=== PATIENT | female | born 1990 | race Caucasian/White ===

== ENCOUNTER 2017-02-13 12:15 | Emergency (ER) | payer MEDICAID, OTHER ==
[~2017-02-13] VITALS: Ht 154.9 cm; Wt 44.8 kg
[~2017-02-13 12:15] MED LIST: ACET50TA PO; COLA100C PO
[2017-02-13 12:16] VITALS: BP 131/72
[2017-02-13] MEDS ORDERED: ALBU17IN (12:26)
[2017-02-13] MEDS ORDERED: ABIL5TAB5 PO (12:26)
[2017-02-13] MEDS ORDERED: SERTRALINE (12:26)
[2017-02-13] MEDS ORDERED: VITA50003 (12:26)
[2017-02-13] MEDS ORDERED: RANI150T (12:26)
[2017-02-13] MEDS ORDERED: TYLE325T5 PO (13:04)
[2017-02-13] MEDS ORDERED: CYCL10TA PO (13:04)
== END 2017-02-13 13:22 | disposition home or self-care (01) ==
LOC: M ED 13:03
DX: M54.5 Low back pain (principal); M41.9 Scoliosis, unspecified; Z79.899 Other long term (current) drug therapy; Z88.5 Allergy status to narcotic agent; Z88.8 Allergy status to other drugs, medicaments and biological substances

== ENCOUNTER 2017-05-28 00:29 | Emergency (ER) | payer OTHER ==
[~2017-05-28 00:29] MED LIST changes: +ABIL1TAB11 PO; +ALBU17IN; -COLA100C PO; +COLA100C5 PO; +CYCL10TA PO; +RANI150T; +SERTRALINE; +TYLE325T5 PO; +VITA1CAP40
[2017-05-28] MEDS ORDERED: CLIN150C14 PO (01:41)
[2017-05-28] MEDS ORDERED: CLINDAMYCIN 150 MG CAP PO ONE (01:45)
[2017-05-28] MEDS ORDERED: KETOROLAC 60 MG/2 ML VIAL (J1885) IM ONE (02:00)
[2017-05-28] MEDS ORDERED: ACETAMINOPHEN TAB 650MG DOSE (2X325MG) PO ONE (02:00)
[2017-05-28 02:12] VITALS: BP 110/65
== END 2017-05-28 02:13 | disposition home or self-care (01) ==
LOC: M ED 00:29
DX: L03.119 Cellulitis of unspecified part of limb (principal); J45.909 Unspecified asthma, uncomplicated; E61.1 Iron deficiency; F17.200 Nicotine dependence, unspecified, uncomplicated; Z79.899 Other long term (current) drug therapy; Z88.5 Allergy status to narcotic agent; Z88.6 Allergy status to analgesic agent; Z88.8 Allergy status to other drugs, medicaments and biological substances

== ENCOUNTER 2017-08-13 14:56 | Emergency (ER) | payer OTHER ==
[~2017-08-13] VITALS: Ht 154.9 cm; Wt 45.9 kg
[~2017-08-13 14:56] MED LIST changes: +CLIN150C14 PO
[2017-08-13 14:57] VITALS: BP 134/72
[2017-08-13] MEDS ORDERED: ARNU1INH3 (15:07)
[2017-08-13] MEDS ORDERED: SERT-155 (15:07)
[2017-08-13] MEDS ORDERED: VENL37.598 (15:07)
[2017-08-13] MEDS ORDERED: BLIS1TAB2 (15:07)
[2017-08-13] MEDS ORDERED: traMADol 50 MG TAB PO ONE (17:30)
[2017-08-13] MEDS ORDERED: TRAM50TA2 PO (18:41)
--- NOTE | 2017-08-13 19:56 | REP ---
Left wrist series: Four views. History: Injury. Findings: Four views of the left wrist demonstrate overall normal mineralization. No fracture or subluxation is seen. No change from comparison study December 10, 2015. Impression: Negative left wrist series. Signed by Moses Rivera MD 08/14/2017 08:10 A
== END 2017-08-13 19:06 | disposition home or self-care (01) ==
LOC: M ED 14:56
DX: S63.502A Unspecified sprain of left wrist, initial encounter (principal); X50.9XXA Other and unspecified overexertion or strenuous movements or postures, initial encounter; Y92.099 Unspecified place in other non-institutional residence as the place of occurrence of the external cause; Y93.89 Activity, other specified; Y99.9 Unspecified external cause status; F41.9 Anxiety disorder, unspecified; J45.909 Unspecified asthma, uncomplicated; F17.200 Nicotine dependence, unspecified, uncomplicated; Z79.899 Other long term (current) drug therapy; Z88.8 Allergy status to other drugs, medicaments and biological substances; Z88.6 Allergy status to analgesic agent; Z88.5 Allergy status to narcotic agent

== ENCOUNTER 2017-12-08 14:06 | Emergency (ER) | payer OTHER | END 2017-12-08 16:15 | disposition home or self-care (01) | LOC: M ED 14:06 | DX: S93.491A Sprain of other ligament of right ankle, initial encounter (principal); X50.0XXA Overexertion from strenuous movement or load, initial encounter; Y92.098 Other place in other non-institutional residence as the place of occurrence of the external cause; Y93.39 Activity, other involving climbing, rappelling and jumping off; J45.909 Unspecified asthma, uncomplicated; F41.9 Anxiety disorder, unspecified; F32.9 Major depressive disorder, single episode, unspecified; Z79.899 Other long term (current) drug therapy; Z79.51 Long term (current) use of inhaled steroids; Z88.5 Allergy status to narcotic agent; Z88.8 Allergy status to other drugs, medicaments and biological substances | CPT/HCPCS: 73610 ==

== ENCOUNTER 2018-03-24 23:23 | Emergency (ER) | payer OTHER ==
[2018-03-25] MEDS ORDERED: LIDOCAINE W/EPINEPHRINE 1% 20ML VIAL As Ordered (01:23)
[2018-03-25] MEDS: LIDOCAINE W/EPINEPHRINE 1% 20ML VIAL SC (01:30)
== END 2018-03-25 02:06 | disposition home or self-care (01) ==
LOC: M ED 23:23
DX: K02.9 Dental caries, unspecified (principal); J45.909 Unspecified asthma, uncomplicated; Z88.5 Allergy status to narcotic agent; Z88.8 Allergy status to other drugs, medicaments and biological substances; F17.210 Nicotine dependence, cigarettes, uncomplicated
CPT/HCPCS: 99283

== ENCOUNTER 2018-05-12 10:56 | Emergency (ER) | payer OTHER ==
[2018-05-12 12:47] LABS: BASO # 0.1 10^3/uL (0.0-0.2); BASO % 0.6 % (0.0-1.0); EOS # 0.2 10^3/uL (0.0-0.50); EOS % 2.5 % (0.0-3.0); HEMATOCRIT 45.1 % (36.0-47.0); HEMOGLOBIN 15.4 g/dl (12.0-15.5); IMMATURE GRANULOCYTE % 0.1 % (0-3.0); LYMPH # 2.7 10^3/uL (1.5-6.5); LYMPH % 31.5 % (24.0-44.0); MEAN CORPUSCULAR HEMOGLOBIN 29.3 pg (27.0-33.0); MEAN CORPUSCULAR HGB CONC 34.1 g/dl (32.0-36.5); MEAN CORPUSCULAR VOLUME 85.9 fl (80.0-96.0); MONO # 0.4 10^3/uL (0.0-0.8); MONO % 5.2 % (0.0-5.0); NEUTROPHILS % 60.1 % (36.0-66.0); PLATELET COUNT, AUTOMATED 262 10^3/uL (150-450); RED BLOOD COUNT 5.25 10^6/uL (4.00-5.40); RED CELL DISTRIBUTION WIDTH 13.5 % (11.5-14.5); WHITE BLOOD COUNT 8.4 10^3/uL (4.0-10.0)
[2018-05-12 12:51] LABS: KETONE, URINE AUTO RFX NEGATIVE (NEGATIVE); LEUKOCYTE ESTERASE UR AUTO RFX NEGATIVE (NEGATIVE); MUCUS, URINE RFX SMALL (NEGATIVE); NITRITE, URINE AUTO RFX NEGATIVE (NEGATIVE); RBC, URINE AUTO RFX 2 /HPF (0-3); SPECIFIC GRAVITY UR AUTO RFX 1.005 (1.002-1.035); SQUAM EPITHELIAL CELL UR AURFX 2 /HPF (0-6); WBC, URINE AUTO RFX 2 /HPF (0-3)
[2018-05-12 13:22] LABS: ANION GAP 9 MEQ/L (8-16); BLOOD UREA NITROGEN 6 MG/DL (7-18); CALCIUM LEVEL 9.1 MG/DL (8.5-10.1); CARBON DIOXIDE LEVEL 26 MEQ/L (21-32); CHLORIDE LEVEL 108 MEQ/L (98-107); GLOMERULAR FILTRATION RATE > 60.0 (>60); GLUCOSE, FASTING 89 MG/DL (70-100); POTASSIUM SERUM 4.3 MEQ/L (3.5-5.1); SODIUM LEVEL 143 MEQ/L (136-145); THYROID STIMULATING HORMONE 0.749 uIU/ML (0.358-3.740)
[2018-05-12 13:57] LABS: CONTROL LINE HCG INT CTR LINE PRESENT; HCG, SERUM QUALITATIVE NEGATIVE (NEGATIVE)
== END 2018-05-12 14:25 | disposition home or self-care (01) ==
LOC: M ED 10:56
DX: N92.6 Irregular menstruation, unspecified (principal); M54.5 Low back pain; F41.9 Anxiety disorder, unspecified; F32.9 Major depressive disorder, single episode, unspecified; F17.200 Nicotine dependence, unspecified, uncomplicated; Z88.5 Allergy status to narcotic agent; Z88.8 Allergy status to other drugs, medicaments and biological substances; Z79.899 Other long term (current) drug therapy
CPT/HCPCS: 84443

== ENCOUNTER → 2018-09-18 | Outpatient (CLI) | payer OTHER ==
[2018-09-18 14:38] LABS: BASO % 0.3 % (0.0-1.0); EOS # 0.3 10^3/uL (0.0-0.50); EOS % 2.9 % (0.0-3.0); HEMATOCRIT 45.5 % (36.0-47.0); HEMOGLOBIN 15.7 g/dl (12.0-15.5); IMMATURE GRANULOCYTE % 0.2 % (0-3.0); LYMPH # 3.8 10^3/uL (1.5-6.5); LYMPH % 41.9 % (24.0-44.0); MEAN CORPUSCULAR HEMOGLOBIN 29.7 pg (27.0-33.0); MEAN CORPUSCULAR HGB CONC 34.5 g/dl (32.0-36.5); MEAN CORPUSCULAR VOLUME 86.2 fl (80.0-96.0); MONO # 0.4 10^3/uL (0.0-0.8); MONO % 4.8 % (0.0-5.0); NEUTROPHILS # 4.5 10^3/uL (1.8-7.7); NEUTROPHILS % 49.9 % (36.0-66.0); PLATELET COUNT, AUTOMATED 258 10^3/uL (150-450); RED BLOOD COUNT 5.28 10^6/uL (4.00-5.40); RED CELL DISTRIBUTION WIDTH 12.9 % (11.5-14.5)
[2018-09-18 14:52] LABS: HCG, SERUM QUALITATIVE NEGATIVE (NEGATIVE)
[2018-09-18 14:53] LABS: CONTROL LINE HCG INT CTR LINE PRESENT
[2018-09-18 15:08] LABS: ALKALINE PHOSPHATASE 88 U/L (45-117); ALT/SGPT 17 U/L (12-78); ANION GAP 8 MEQ/L (8-16); AST/SGOT 12 U/L (7-37); BILIRUBIN,TOTAL 0.6 MG/DL (0.2-1.0); BLOOD UREA NITROGEN 12 MG/DL (7-18); CALCIUM LEVEL 8.7 MG/DL (8.5-10.1); CARBON DIOXIDE LEVEL 25 MEQ/L (21-32); CHLORIDE LEVEL 108 MEQ/L (98-107); CREATININE FOR GFR 0.78 MG/DL (0.55-1.30); GLOMERULAR FILTRATION RATE > 60.0 (>60); GLUCOSE, FASTING 77 MG/DL (70-100); SODIUM LEVEL 141 MEQ/L (136-145)
[2018-09-18 15:09] LABS: ALBUMIN 4.1 GM/DL (3.2-5.2); ALBUMIN/GLOBULIN RATIO 1.37 (1.00-1.93); THYROID STIMULATING HORMONE 0.921 uIU/ML (0.358-3.740); TOTAL PROTEIN 7.1 GM/DL (6.4-8.2)
== END ==
LOC: M LAB 14:14
DX: N91.1 Secondary amenorrhea (principal); Z86.2 Personal history of diseases of the blood and blood-forming organs and certain disorders involving the immune mechanism
CPT/HCPCS: 84443

== ENCOUNTER → 2019-02-05 | Outpatient (REF) | payer OTHER ==
[~2019-02-05] MED LIST changes: -ACET50TA PO; +ARNU1INH3; +BLIS1TAB2; +CLEO300C2 PO; +MAPA500T2 PO; +MULTLIQ7 PO; +SERT-155; +TRAM50TA2 PO; +VENL37.598; -VITA1CAP40; +VITA50005
--- NOTE | 2019-02-05 20:25 | REP ---
Lumbar spine five views History: None provided There is no acute fracture or subluxation. Intervertebral discs are normal in height. The facet joints are normal in appearance. Impression: There is no acute fracture or subluxation. Electronically Signed by Ken Song MD 02/05/2019 08:17 P
== END ==
LOC: M RAD 17:40
PROVIDERS: ATTEND Family Medicine Addiction Medicine
DX: M54.16 Radiculopathy, lumbar region (principal)

== ENCOUNTER 2019-06-04 18:13 | Emergency (ER) | payer OTHER ==
[~2019-06-04] VITALS: Ht 160 cm; Wt 44.4 kg
[2019-06-04 18:13] VITALS: BP 113/80
[2019-06-04] MEDS ORDERED: VOLT1GEL15 TOP (19:13)
[2019-06-04] MEDS ORDERED: ACETAMINOPHEN 325 MG TAB PO ONE (19:15)
== END 2019-06-04 19:22 | disposition home or self-care (01) ==
LOC: M ED 18:13
DX: S63.502A Unspecified sprain of left wrist, initial encounter (principal); X58.XXXA Exposure to other specified factors, initial encounter; Y92.099 Unspecified place in other non-institutional residence as the place of occurrence of the external cause; Y93.89 Activity, other specified; Y99.9 Unspecified external cause status; Z72.0 Tobacco use; J45.909 Unspecified asthma, uncomplicated; F41.9 Anxiety disorder, unspecified; F32.9 Major depressive disorder, single episode, unspecified; Z79.899 Other long term (current) drug therapy; Z88.5 Allergy status to narcotic agent; Z88.6 Allergy status to analgesic agent; Z88.8 Allergy status to other drugs, medicaments and biological substances

== ENCOUNTER → 2019-07-08 | Outpatient (REF) | payer OTHER, MEDICAID ==
[~2019-07-08] MED LIST changes: +VOLT1GEL15 TOP
[2019-07-08 13:25] LABS: BASO % 0.4 % (0.0-1.0); EOS # 0.3 10^3/uL (0.0-0.50); EOS % 3.1 % (0.0-3.0); HEMATOCRIT 43.2 % (36.0-47.0); HEMOGLOBIN 14.8 g/dl (12.0-15.5); LYMPH # 3.3 10^3/uL (1.5-6.5); LYMPH % 32.2 % (24.0-44.0); MEAN CORPUSCULAR HEMOGLOBIN 30.6 pg (27.0-33.0); MEAN CORPUSCULAR HGB CONC 34.3 g/dl (32.0-36.5); MEAN CORPUSCULAR VOLUME 89.3 fl (80.0-96.0); MONO # 0.5 10^3/uL (0.0-0.8); MONO % 5.4 % (0.0-5.0); NEUTROPHILS # 5.9 10^3/uL (1.8-7.7); NEUTROPHILS % 58.6 % (36.0-66.0); PLATELET COUNT, AUTOMATED 295 10^3/uL (150-450); RED BLOOD COUNT 4.84 10^6/uL (4.00-5.40); WHITE BLOOD COUNT 10.1 10^3/uL (4.0-10.0)
[2019-07-08 13:44] LABS: ALBUMIN 3.6 GM/DL (3.2-5.2); ALT/SGPT 16 U/L (12-78); BILIRUBIN,TOTAL 0.3 MG/DL (0.2-1.0); BLOOD UREA NITROGEN 12 MG/DL (7-18); CARBON DIOXIDE LEVEL 24 MEQ/L (21-32); CHLORIDE LEVEL 109 MEQ/L (98-107); CHOLESTEROL LEVEL 158 MG/DL (<200); CHOLESTEROL RISK RATIO 2.507 (<5); CREATININE FOR GFR 0.72 MG/DL (0.55-1.30); FERRITIN 22 NG/ML (8-252); FREE T4 0.95 NG/DL (0.76-1.46); GLOMERULAR FILTRATION RATE > 60.0 (>60); GLUCOSE, FASTING 76 MG/DL (70-100); HDL CHOLESTEROL 63 MG/DL (>40); IRON (FE) 58 UG/DL (50-170); LDL CHOLESTEROL 77 MG/DL (<100); NON-HDL-C 95 MG/DL; POTASSIUM SERUM 4.4 MEQ/L (3.5-5.1); SODIUM LEVEL 141 MEQ/L (136-145); TOTAL 25(OH) VITAMIN D 26.8 NG/ML (30.0-100.0); TOTAL PROTEIN 6.8 GM/DL (6.4-8.2); TRIGLYCERIDES LEVEL 89 MG/DL (<150); VITAMIN B12 LEVEL 649 PG/ML (247-911)
[2019-07-08 13:57] LABS: HEMOGLOBIN A1c 5.1 %
== END ==
LOC: M LAB REF 12:34
PROVIDERS: ATTEND Nurse Practitioner Family
DX: Z00.01 Encounter for general adult medical examination with abnormal findings (principal); R53.83 Other fatigue

== ENCOUNTER → 2019-08-22 | Outpatient (CLI) | payer OTHER, MEDICAID ==
[~2019-08-22] MED LIST changes: +ACET-897 PO; +ALBU8.5H PO; +AMOX875T; +ARNU1INH3 PO; +ICY1PAD EX; +IRON27TA2 PO; +OXYC-517; +PARO5TAB; -SERT-155; +SERT50TA29; +VITA-145 PO
--- NOTE | 2019-09-12 11:42 | ECWPNPC ---
PATIENT NAME: RISHI LAWSON : 1990 GENDER: FEMALE VISIT DATE: 08/22/2019 DISCHARGE DATE: 08/22/19 1300 VISIT LOCKED DATE TIME: PHYSICIAN: TOM PETERSON MD RESOURCE: TOM PETERSON MD DISCLAIMER : THIS IS A VISIT SUMMARY EXTRACTED FROM THE [facility] CHART. IT IS NOT A COPY OF THE [facility] [facility] PROGRESS NOTE. MTDD
== END ==
LOC: M PAIN 11:00
PROVIDERS: ATTEND Anesthesiology
DX: M79.18 Myalgia, other site (principal); M54.5 Low back pain; G89.29 Other chronic pain; J45.909 Unspecified asthma, uncomplicated; Z86.59 Personal history of other mental and behavioral disorders; F17.210 Nicotine dependence, cigarettes, uncomplicated; M41.9 Scoliosis, unspecified; Z88.5 Allergy status to narcotic agent; Z88.6 Allergy status to analgesic agent; Z88.8 Allergy status to other drugs, medicaments and biological substances; Z91.018 Allergy to other foods; Z79.51 Long term (current) use of inhaled steroids; Z79.899 Other long term (current) drug therapy

== ENCOUNTER 2019-10-17 14:03 | Emergency (ER) | payer MEDICAID, OTHER ==
[~2019-10-17] VITALS: Ht 157.5 cm; Wt 43.2 kg
[2019-10-17 14:03] VITALS: BP 121/80
[~2019-10-17 14:03] MED LIST changes: -ACET-897 PO; -ALBU8.5H PO; -AMOX875T; -ARNU1INH3 PO; -ICY1PAD EX; -IRON27TA2 PO; -OXYC-517; -PARO5TAB; -VITA-145 PO
[2019-10-17] MEDS ORDERED: OXYC-517 (14:12)
[2019-10-17] MEDS ORDERED: PARO5TAB (14:12)
[2019-10-17] MEDS ORDERED: AMOX875T (14:12)
[2019-10-17] MEDS ORDERED: CLEO300C2 PO (15:20)
== END 2019-10-17 15:47 | disposition home or self-care (01) ==
LOC: M ED 14:03
DX: K04.7 Periapical abscess without sinus (principal); Z88.5 Allergy status to narcotic agent; Z88.8 Allergy status to other drugs, medicaments and biological substances; F17.210 Nicotine dependence, cigarettes, uncomplicated

== ENCOUNTER 2019-12-01 12:37 | Emergency (ER) | payer OTHER ==
[~2019-12-01] VITALS: Ht 157.5 cm; Wt 47.6 kg
[~2019-12-01 12:37] MED LIST changes: +AMOX875T; +OXYC-517; +PARO5TAB
[2019-12-01] MEDS ORDERED: VITA-145 PO (12:49)
[2019-12-01] MEDS ORDERED: IRON27TA2 PO (12:49)
[2019-12-01] MEDS ORDERED: ARNU1INH3 PO (12:49)
[2019-12-01] MEDS ORDERED: ALBU8.5H PO (12:49)
[2019-12-01] MEDS ORDERED: ICY1PAD EX (12:49)
[2019-12-01] MEDS ORDERED: ACETAMINOPHEN TAB 650MG DOSE (2X325MG) PO ONE (13:45)
[2019-12-01 14:16] LABS: BASO % 0.4 % (0.0-1.0); EOS # 0.2 10^3/uL (0.0-0.5); EOS % 2.6 % (0.0-3.0); HEMATOCRIT 49.2 % (36.0-47.0); HEMOGLOBIN 15.9 g/dl (12.0-15.5); LYMPH # 2.7 10^3/uL (1.5-5.0); LYMPH % 29.9 % (24.0-44.0); MEAN CORPUSCULAR HEMOGLOBIN 28.8 pg (27.0-33.0); MEAN CORPUSCULAR HGB CONC 32.3 g/dl (32.0-36.5); MEAN CORPUSCULAR VOLUME 89.1 fl (80.0-96.0); MONO # 0.5 10^3/uL (0.0-0.8); MONO % 5.6 % (0.0-5.0); NEUTROPHILS # 5.5 10^3/uL (1.5-8.5); NEUTROPHILS % 61.3 % (36.0-66.0); PLATELET COUNT, AUTOMATED 311 10^3/uL (150-450); RED BLOOD COUNT 5.52 10^6/uL (4.00-5.40)
[2019-12-01 14:40] LABS: ERYTHROCYTE SEDIMENTATION RATE 1 mm/hr (0-20)
[2019-12-01 14:54] VITALS: BP 101/74
[2019-12-01] MEDS ORDERED: ACET-897 PO (14:54)
== END 2019-12-01 15:06 | disposition home or self-care (01) ==
LOC: M ED 12:37
DX: G89.29 Other chronic pain (principal); M25.532 Pain in left wrist; J45.909 Unspecified asthma, uncomplicated; F17.210 Nicotine dependence, cigarettes, uncomplicated; Z88.5 Allergy status to narcotic agent; Z88.6 Allergy status to analgesic agent; Z79.51 Long term (current) use of inhaled steroids; Z79.899 Other long term (current) drug therapy

== ENCOUNTER 2020-02-29 02:17 | Emergency (ER) | payer OTHER ==
[~2020-02-29] VITALS: Ht 157.5 cm; Wt 45.9 kg
[~2020-02-29 02:17] MED LIST changes: +ACET-897 PO; +ALBU8.5H PO; +ARNU1INH3 PO; +ICY1PAD EX; +IRON27TA2 PO; +VITA-145 PO
[2020-02-29] MEDS ORDERED: KETOROLAC 30 MG/ML VIAL (J1885) As Ordered ONE (03:05)
[2020-02-29] MEDS ORDERED: KETOROLAC 30 MG/ML VIAL (J1885) IV ONE (03:15)
[2020-02-29] MEDS ORDERED: KEFL500C17 PO (03:58)
[2020-02-29 04:07] VITALS: BP 110/62
[2020-02-29] MEDS ORDERED: CEPHALEXIN 500 MG CAP PO ONE (04:15)
--- NOTE | 2020-02-29 08:07 | REP ---
LEFT ANKLE SERIES: FOUR VIEWS. HISTORY: Left ankle pain. FINDINGS: There is moderate anterolateral soft-tissue swelling. Ankle mortise is intact. No fracture is seen. Bones, joints, and soft tissues are otherwise unremarkable. IMPRESSION: Anterolateral swelling. No fracture seen. Otherwise unchanged from comparison study May 05, 2016. Electronically Signed by Moses Rivera MD 02/29/2020 08:58 A
== END 2020-02-29 04:16 | disposition home or self-care (01) ==
LOC: M ED 02:17
DX: L03.116 Cellulitis of left lower limb (principal); Z88.5 Allergy status to narcotic agent; Z88.8 Allergy status to other drugs, medicaments and biological substances; F17.210 Nicotine dependence, cigarettes, uncomplicated
CPT/HCPCS: 73610; 84702; 96374; 99284; J1885

== ENCOUNTER 2020-05-08 20:58 | Inpatient (IN) | payer OTHER ==
[~2020-05-08] VITALS: Ht 157.5 cm; Wt 44.0 kg
[~2020-05-08 20:58] MED LIST changes: +CYCL-707 PO; -CYCL10TA PO; +KEFL500C17 PO
[2020-05-08] MEDS ORDERED: NS 1,000 ML IV ONE (22:00)
[2020-05-08 22:33] LABS: BASO % 0.1 % (0.0-1.0); EOS % 0.2 % (0.0-3.0); HEMATOCRIT 42.9 % (36.0-47.0); HEMOGLOBIN 14.6 g/dl (12.0-15.5); LYMPH # 1.4 10^3/uL (1.5-5.0); LYMPH % 9.8 % (24.0-44.0); MEAN CORPUSCULAR HEMOGLOBIN 28.6 pg (27.0-33.0); MONO # 1.1 10^3/uL (0.0-0.8); MONO % 7.5 % (0.0-5.0); NEUTROPHILS # 11.8 10^3/uL (1.5-8.5); NEUTROPHILS % 82.1 % (36.0-66.0); PLATELET COUNT, AUTOMATED 271 10^3/uL (150-450); RED BLOOD COUNT 5.11 10^6/uL (4.00-5.40); WHITE BLOOD COUNT 14.5 10^3/uL (4.0-10.0)
[2020-05-08] MEDS ORDERED: ISOVUE-370 76% 100ML VIAL As Ordered ONE (22:41)
[2020-05-08 22:57] LABS: ERYTHROCYTE SEDIMENTATION RATE 26 mm/hr (0-20)
--- NOTE | 2020-05-08 23:12 | REPVR ---
PROCEDURE INFORMATION: Exam: CT Neck With Contrast Exam date and time: 05/08/2020 10:50 PM Age: 29 years old Clinical indication: Dysphagia / difficulty swallowing and mass, lump, or swelling in neck; Additional info: Swelling to L neck/jaw, diff swallowing TECHNIQUE: Imaging protocol: Computed tomography images of the neck with intravenous contrast. Radiation optimization: All CT scans at this facility use at least one of these dose optimization techniques: automated exposure control; mA and/or kV adjustment per patient size (includes targeted exams where dose is matched to clinical indication); or iterative reconstruction. Contrast material: ISOVUE 370; Contrast volume: 75 ml; Contrast route: INTRAVENOUS (IV); COMPARISON: No relevant prior studies available. FINDINGS: Nasopharynx: Unremarkable. Dental: There is a large cavity in the crown of the left posterior mandibular molar with associated periapical lucency and a small area of cortical breakthrough in the medial cortical surface adjacent to the floor of the mouth abscess. Extensive odontogenic disease is present throughout the remaining teeth. Oropharynx: There is a 3.4 x 2.0 x 1.7 cm abscess in the left oral cavity adjacent to the left mandibular ramus. Hypopharynx: Unremarkable. Larynx: Unremarkable. Normal epiglottis. Retropharyngeal space: Unremarkable. Submandibular/Parotid glands: Normal. Glands are normal in size. Thyroid: Normal. No enlarged or calcified nodules. Lymph nodes: Reactive cervical lymphadenopathy on the left. Trachea: Visualized trachea is unremarkable. Lungs: Unremarkable as visualized. Bones/joints: Unremarkable. No acute fracture. Soft tissues: Extensive soft tissue swelling in the oral cavity and mild overlying edema in the lower facial and upper neck soft tissues. IMPRESSION: Large odontogenic abscess adjacent to the medial left [place] mandible. Associated soft tissue swelling in the floor of the mouth and left facial soft tissues. Electronically signed by: Nikita Campuzano On 05/08/2020 23:11:43 PM
[2020-05-08] MEDS ORDERED: dexameTHASONE 20MG/5ML VIAL (J1100 PER 1MG) IV ONE (23:15)
[2020-05-08] MEDS ORDERED: AMPICILLIN SOD/SULBACTAM SOD 3 GM in D5W MINI-BAG PLUS 100 ML IV ONE (23:30)
[2020-05-08] MEDS ORDERED: MORPHINE 2 MG/ML 1ML VIAL (J2270) IV ONE (23:30)
[2020-05-08] MEDS ORDERED: ONDANSETRON 4MG/2ML VIAL IV ONE (23:30)
[2020-05-08] MEDS ORDERED: ALBU8.5H INH (23:46)
[2020-05-09] VITALS (8 sets, daily range): BP systolic 100–124; BP diastolic 52–74
[2020-05-09] MEDS ORDERED: ACET-683 PO (00:06)
[2020-05-09] MEDS ORDERED: MORPHINE 4 MG/ML 1ML VIAL/SYRINGE (J2270) IV ONE (01:30)
[2020-05-09] MEDS ORDERED: ACETAMINOPHEN 500 MG TAB PO PRN (02:15)
--- NOTE | 2020-05-09 02:18 | HPEPDOC ---
[facility] Medical History & Physical Date of Admission May 09, 2020 Date of Service: May 09, 2020 Attending Physician: ART SCHNEIDER MD History and Physical CHIEF COMPLAINT: Oral abscess HISTORY OF PRESENT ILLNESS: 29-year-old female with past medical history of anxiety, depression and asthma, presents with an oral abscess. 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 She recently had an infection 2 weeks ago, t reated with IV antibiotics and required some form of surgical intervention as well. She reports her current infection started a few days ago, has pain with swallowing and fevers at home. She denies any issues with breathing, able to eat solids and liquids, but with pain/discomfort. CT neck in the ER shows a submandibular abscess in the left side, oral surgeon was consulted and patient is scheduled for intervention later today. She denies any chest pain, nausea, vomiting, diarrhea or constipation. 10 point review of system is negative except for above PAST MEDICAL HISTORY: 1. Anxiety/depression. 2. Asthma. 3. Recurrent oral infections. PAST SURGICAL HISTORY: 1. Oral surgeries for infection. SOCIAL HISTORY: Current smoker. Denies alcohol use. Denies drug use FAMILY HISTORY: Positive for recurrent oral infections in her mother ALLERGIES: Please see below. HOME MEDICATIONS: Please see below. PHYSICAL EXAMINATION: VITAL SIGNS: Please see below. GENERAL: No distress HEENT: Normocephalic, atraumatic, very poor oral hygiene, swelling appreciated in the left submandibular area, warm to touch with tenderness to palpation NECK: Supple CARDIOVASCULAR EXAMINATION: S1, S2, no murmurs RESPIRATORY EXAMINATION: Clear to auscultation, no wheezing ABDOMINAL EXAMINATION: Soft, nontender, nondistended, positive bowel sounds EXTREMITIES: Range of motion intact SKIN: No rash NEUROLOGICAL EXAMINATION: Alert and oriented 3, no focal deficits PSYCHIATRIC EXAMINATION: Calm and cooperative LABORATORY DATA: See below. IMAGING: CT neck showing left submandibular abscess MICROBIOLOGY: Please see below. ASSESSMENT: 29-year-old female with past medical history of anxiety/depression, asthma and recurrent oral infections being admitted for left submandibular abscess. PLAN: 1. Submandibular abscess. Left-sided, oral surgeon consulted by emergency department, plan for surgical intervention later today, nothing by mouth, IV fluids, Unasyn 3 g every 6 hours, cultures pending. 2. Anxiety/depression. Managed without medication, outpatient follow-up. 3. Asthma. Doesn't require medication, currently stable, outpatient follow-up. DVT prophylaxis: SCDs. GI prophylaxis: Not needed Vital Signs Vital Signs Date Time Temp Pulse Resp B/P (MAP) Pulse Ox O2 Delivery O2 Flow Rate FiO2 05/09/20 01:47 98.9 72 18 99/56 (70) 100 05/08/20 20:58 Room Air Laboratory Data Labs 24H Laboratory Tests 2 05/08/20 22:17: Immature Granulocyte % (Auto) 0.3, Neutrophils (%) (Auto) 82.1H, Lymphocytes (%) (Auto) 9.8L, Monocytes (%) (Auto) 7.5H, Eosinophils (%) (Auto) 0.2, Basophils (%) (Auto) 0.1, Neutrophils # (Auto) 11.8H, Lymphocytes # (Auto) 1.4L, Monocytes # (Auto) 1.1H, Eosinophils # (Auto) 0.0, Basophils # (Auto) 0.0, Nucleated Red Blood Cells % (auto) 0.0, Erythrocyte Sedimentation Rate 26H, Lactic Acid Level 1.4, C-Reactive Protein, Quantitative 12.50H 05/08/20 22:25: POC Glucose (Misc Panel) 109H, POC Sodium (Misc Panel) 138, POC Potassium (Misc Panel) 3.7, POC Chloride (Misc Panel) 99, POC Total CO2 (Misc Panel) 24.0, POC Blood Urea Nitrogen (Misc Panel 3L, POC Ionized Calcium (Misc Panel) 4.8, POC Creatinine (Misc Panel) 0.5L, POC Hematocrit (Misc Panel) 45.0 05/08/20 22:28: POC Beta HCG, Quantitative < 5.0 CBC/BMP Laboratory Tests 05/08/20 22:17 Microbiology Microbiology 05/08/20 Blood Culture, Received Pending 05/08/20 Blood Culture, Received Pending 05/08/20 Group A Streptococcus Screen (BHUPENDRA), Received Pending Home Medications Scheduled PRN Acetaminophen (Acetaminophen) 500 Mg Tablet, 500 MG PO Q6H PRN for PAIN Albuterol Sulfate (Albuterol Sulfate Hfa) 8.5 Gm Hfa.aer.ad, 2 PUFF INH Q4H PRN for SOB/WHEEZING Allergies Coded Allergies: naproxen (Verified Allergy, Intermediate, hives, 05/08/20) tramadol (Verified Allergy, Intermediate, hives/vomiting, 05/08/20) lithium (Verified Adverse Reaction, Intermediate, vomiting/hair loss, 05/08/20) hydrocodone (Verified Adverse Reaction, Mild, vomiting, 05/08/20) ibuprofen (Verified Adverse Reaction, Mild, vomiting, 05/08/20) A-FIB/CHADSVASC A-FIB History Current/History of A-Fib/PAF?: No ART SCHNEIDER MD May 09, 2020 02:18
[2020-05-09] MEDS: NS 1,000 ML IV SCH ×2 (02:29→15:13)
[2020-05-09] MEDS: ACETAMINOPHEN 325 MG/10.15 ML UDC PO PRN ×2 (04:27→10:52)
[2020-05-09] MEDS: AMPICILLIN SOD/SULBACTAM SOD 3 GM in D5W MINI-BAG PLUS 100 ML IV SCH ×3 (05:13→18:48)
--- NOTE | 2020-05-09 08:10 | REP ---
Panorex mandible: Single view. History: Oral surgery evaluation. Findings: There are multiple carious mandibular and maxillary teeth. There are several missing maxillary teeth. No bony destructive lesion is seen in the mandible or maxilla. Electronically Signed by Moses Rivera MD 05/09/2020 08:02 A
[2020-05-09] MEDS ORDERED: KETOROLAC 30 MG/ML 1ML VIAL IV ONE (11:15)
--- NOTE | 2020-05-09 11:57 | IPNPDOC ---
Text Note Date of Service The patient was seen on 05/09/20. NOTE Subjective: Complains of severe left lower jaw pain and swelling around that area and adjacent part of the neck. No fever or overnight. Seen by oral surgeon planned for OR this PM. PHYSICAL EXAMINATION: VITAL SIGNS: Please see below. GENERAL: No distress HEENT: Normocephalic, atraumatic, very poor oral hygiene, swelling appreciated in the left submandibular area, warm to touch with tenderness to palpation NECK: Supple CARDIOVASCULAR EXAMINATION: S1, S2, no murmurs RESPIRATORY EXAMINATION: Clear to auscultation, no wheezing ABDOMINAL EXAMINATION: Soft, nontender, nondistended, positive bowel sounds EXTREMITIES: Range of motion intact SKIN: No rash NEUROLOGICAL EXAMINATION: Alert and oriented 3, no focal deficits PSYCHIATRIC EXAMINATION: Calm and cooperative Labs and Radiology : reviewed. Assessment and Plan: 29-year-old female with past medical history of anxiety, depression and asthma, presents with an oral abscess. 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 She recently had an infection 2 weeks ago, treated with IV antibiotics and required some form of surgical intervention as well. She reports her current infection started a few days ago, has pain with swallowing and fevers at home. CT neck in the ER shows a submandibular abscess in the left side, oral surgeon was consulted and patient is scheduled for intervention later today. Left Odontogenic abscess adjacent tot eh mandible. CT neck : Large odontogenic abscess adjacent to the medial left [place] mandible. Associated soft tissue swelling in the floor of the mouth and left facial soft tissues. plan for surgical intervention later today, nothing by mouth, IV fluids, Unasyn 3 g every 6 hours, cultures pending. Anxiety/depression. Managed without medication, outpatient follow-up. Asthma. Doesn't require medication, currently stable, outpatient follow-up. DVT prophylaxis: SCDs. GI prophylaxis: Not needed VS,Fishbone, I+O VS, Fishbone, I+O Laboratory Tests 05/08/20 22:17 Vital Signs Date Time Temp Pulse Resp B/P (MAP) Pulse Ox O2 Delivery O2 Flow Rate FiO2 05/09/20 04:00 97.4 73 15 109/71 (84) 100 Room Air I&O- Last 24 Hours up to 6 AM 05/09/20 05:59 Intake Total 1100 ml Balance 1100 ml NAYELY MARTINEZ MD May 09, 2020 11:57
[2020-05-09] MEDS ORDERED: ALBUTEROL 90 MCG/ACT 8GM HFA INHALER INH PRN (12:00)
[2020-05-09] MEDS ORDERED: OXYMETAZOLINE NASAL SPRAY (AFRIN) As Ordered ONE (16:06)
[2020-05-09] MEDS ORDERED: CHLORHEXIDINE GLUCONATE 0.12 % 15ML UDC (PERIDEX ORAL RINSE) As Ordered ONE (16:06)
[2020-05-09] MEDS ORDERED: LIDOCAINE 2% W/ EPINEPHRINE 1.7 ML DENTAL INJ As Ordered ONE (16:07)
[2020-05-09] MEDS ORDERED: ROCURONIUM BROMIDE 50 MG/5 ML VIAL As Ordered ONE (16:57)
[2020-05-09] MEDS ORDERED: fentaNYL 250 MCG/5 ML INJECTION (J3010) As Ordered ONE (16:57)
[2020-05-09] MEDS ORDERED: LIDOCAINE 2% 100MG/5ML SDV (FOR ANES.) As Ordered ONE (16:57)
[2020-05-09] MEDS ORDERED: SUCCINYLCHOLINE 100 MG/5 ML SYRINGE (J0330) As Ordered ONE (16:57)
[2020-05-09] MEDS ORDERED: MIDAZOLAM INJ 2MG/2ML VIAL (J2250 PER 1MG) As Ordered ONE (16:57)
[2020-05-09] MEDS ORDERED: ONDANSETRON 4MG/2ML VIAL As Ordered ONE ×2 (16:57→18:22)
[2020-05-09] MEDS ORDERED: propofoL 200 MG/20 ML VIAL As Ordered ONE (16:57)
[2020-05-09] MEDS ORDERED: dexameTHASONE 4 MG/ML 1ML VIAL (J1100 PER 1MG) As Ordered ONE (16:57)
[2020-05-09] MEDS ORDERED: SUGAMMADEX SODIUM 500 MG/5 ML VIAL (BRIDION) As Ordered ONE (17:17)
[2020-05-09] MEDS: LR 1,000 ML IV SCH ×2 (17:44→18:35)
[2020-05-09] MEDS ORDERED: METOCLOPRAMIDE INJ 10MG/2ML VIAL (J2765 PER 1) IV PRN (18:15)
[2020-05-09] MEDS ORDERED: PERCOCET 5MG/325MG TAB PO PRN (18:15)
[2020-05-09] MEDS ORDERED: fentaNYL 100 MCG/2 ML INJECTION (J3010) IV PRN (18:15)
[2020-05-09] MEDS ORDERED: MIDAZOLAM INJ 2MG/2ML VIAL (J2250 PER 1MG) IV SCH (18:15)
[2020-05-09] MEDS ORDERED: ONDANSETRON 4MG/2ML VIAL IV PRN (18:15)
[2020-05-09] MEDS: KETOROLAC 30 MG/ML 1ML VIAL IV PRN (18:48)
[2020-05-10] MEDS: AMPICILLIN SOD/SULBACTAM SOD 3 GM in D5W MINI-BAG PLUS 100 ML IV SCH ×4 (00:08→17:02)
[2020-05-10] MEDS: KETOROLAC 30 MG/ML 1ML VIAL IV PRN ×3 (01:00→18:04)
[2020-05-10 02:00] VITALS: BP 100/52
[2020-05-10] MEDS: NS 1,000 ML IV SCH ×2 (03:30→13:20)
[2020-05-10 06:00] VITALS: BP 104/59
[2020-05-10 06:31] LABS: BASO % 0.2 % (0.0-1.0); EOS % 0.1 % (0.0-3.0); HEMATOCRIT 34.3 % (36.0-47.0); HEMOGLOBIN 11.4 g/dl (12.0-15.5); LYMPH % 17.2 % (24.0-44.0); MEAN CORPUSCULAR HEMOGLOBIN 28.6 pg (27.0-33.0); MEAN CORPUSCULAR HGB CONC 33.2 g/dl (32.0-36.5); MEAN CORPUSCULAR VOLUME 86.2 fl (80.0-96.0); MONO # 0.8 10^3/uL (0.0-0.8); MONO % 6.6 % (0.0-5.0); NEUTROPHILS # 8.8 10^3/uL (1.5-8.5); NEUTROPHILS % 75.5 % (36.0-66.0); PLATELET COUNT, AUTOMATED 225 10^3/uL (150-450); RED BLOOD COUNT 3.98 10^6/uL (4.00-5.40); WHITE BLOOD COUNT 11.7 10^3/uL (4.0-10.0)
[2020-05-10 06:54] LABS: BLOOD UREA NITROGEN 5 MG/DL (7-18); CALCIUM LEVEL 8.1 MG/DL (8.5-10.1); CARBON DIOXIDE LEVEL 26 MEQ/L (21-32); CHLORIDE LEVEL 112 MEQ/L (98-107); CREATININE FOR GFR 0.53 MG/DL (0.55-1.30); GLOMERULAR FILTRATION RATE > 60.0 (>60); GLUCOSE, FASTING 100 MG/DL (70-100); POTASSIUM SERUM 3.7 MEQ/L (3.5-5.1); SODIUM LEVEL 143 MEQ/L (136-145)
[2020-05-10 10:00] VITALS: BP 120/70
--- NOTE | 2020-05-10 13:06 | IPNPDOC ---
Text Note Date of Service The patient was seen on 05/10/20. NOTE Subjective: Complains of severe left lower jaw pain and swelling around that area and adjacent part of the neck. No fever over overnight. Had oral surgery done on 05/09/20 PHYSICAL EXAMINATION: VITAL SIGNS: Please see below. GENERAL: No distress HEENT: Normocephalic, atraumatic, Has a drain in the left submandibular area. NECK: Supple CARDIOVASCULAR EXAMINATION: S1, S2, no murmurs RESPIRATORY EXAMINATION: Clear to auscultation, no wheezing ABDOMINAL EXAMINATION: Soft, nontender, nondistended, positive bowel sounds EXTREMITIES: Range of motion intact SKIN: No rash NEUROLOGICAL EXAMINATION: Alert and oriented 3, no focal deficits PSYCHIATRIC EXAMINATION: Calm and cooperative Labs and Radiology : reviewed. Assessment and Plan: 29-year-old female with past medical history of anxiety, depression and asthma, presents with an oral abscess. 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 She recently had an infection 2 weeks ago, treated with IV antibiotics and required some form of surgical intervention as well. She reports her current infection started a few days ago, has pain with swallowing and fevers at home. CT neck in the ER shows a submandibular abscess in the left side, oral surgeon was consulted and patient is scheduled for intervention later today. Left Odontogenic abscess adjacent to the mandible. CT neck : Large odontogenic abscess adjacent to the medial left [place] mandible. Associated soft tissue swelling in the floor of the mouth and left facial soft tissues. Unasyn 3 g every 6 hours, cultures pending. Had drainage of abscess with drain placement , removal of 11 teeth diet as per oral surgeon. Anxiety/depression. Managed without medication, outpatient follow-up. Asthma. Doesn't require medication, currently stable, outpatient follow-up. DVT prophylaxis: SCDs. GI prophylaxis: Not needed VS,Fishbone, I+O VS, Fishbone, I+O Laboratory Tests 05/10/20 06:19 Vital Signs Date Time Temp Pulse Resp B/P (MAP) Pulse Ox O2 Delivery O2 Flow Rate FiO2 05/10/20 10:00 97.6 90 17 120/70 (87) 98 Room Air I&O- Last 24 Hours up to 6 AM 05/10/20 06:00 Intake Total 2810 ml Output Total 175 ml Balance 2635 ml NAYELY MARTINEZ MD May 10, 2020 13:06
[2020-05-10 14:00] VITALS: BP 104/60
[2020-05-10 18:00] VITALS: BP 110/62
--- NOTE | 2020-05-10 20:49 | RO ---
DATE OF PROCEDURE: 05/09/2020 PREOPERATIVE DIAGNOSIS: Left sublingual and submandibular space infections, and terminal dentition including symptomatic and carious teeth number 11, 13, 15, 16, 17, 18, 20, 21, 22, 23, 24, and 25. POSTOPERATIVE DIAGNOSIS: Status post left sublingual and submandibular space infections, and terminal dentition including symptomatic and carious teeth number 11, 13, 15, 16, 17, 18, 20, 21, 22, 23, 24, and 25. PROCEDURE PERFORMED: Incision and drainage of the aforementioned abscess, as well as extraction of the aforementioned teeth. SURGEON: Prem Gonzalez DMD, MD NUCLEAR CRITICALITY SAFETY ENGINEER: ANESTHESIA: General endotracheal anesthesia via oral TORI. SPECIMEN: Cultures, aerobes and anaerobes, and sensitivity, and all teeth were sent out for gross only. ESTIMATED BLOOD LOSS: 20 mL. DRAINS: There was one drain placed quarter-inch [place] drain in the left neck into the sublingual space. INDICATIONS FOR SURGERY: Mrs. Dhaliwal is a pleasant 29-year-old female who was admitted overnight with continued left facial pain and swelling and chronic tooth pain. She reports that her swelling has increased over the last 4 days. She does have limited mouth opening, and she is a relatively healthy female that is a half a pack a day smoker, does not take any medications, and is allergic to lithium but otherwise she is in good general medical health. Her physical examination shows that she was afebrile, and she does have a mild left facial swelling into the cheek and left neck areas with induration noted and tenderness to palpation. Her maximal interincisal opening about 50 mm with pain. She does have grossly decayed teeth throughout her dentition in her mouth with vestibular swelling in lower left area, as well as floor of mouth elevation and tenderness to palpation on the left side. Her uvula is midline, and there is no airway compromise. Her white count was 14,000 on admission. Panoramic x-ray and a CT scan were performed in the emergency room with the CT scan showing a fluid collection in the left submandibular and sublingual space areas on the left, as well as a Panorex that reveals grossly decayed teeth throughout her dentition. A complete history and physical was performed and in the patient's chart. At this point, I gave the option to the patient to have this procedure performed as soon as possible in an operating room (OR) setting, which we discussed at length with all the risks, benefits and alternatives, and she agreed to have this done as such. DESCRIPTION OF PROCEDURE: In the late afternoon of May 09, 2020, any last minute questions were addressed. At this point, the patient was taken back to the operating room. She was laid supine on the operating room table. Ulnar nerve protectors were placed. Noninvasive cardiac monitors were applied. At that point, the patient underwent general anesthesia and was intubated with an oral TORI, which was secured to the patient's left cheek. She was then prepped and draped in the usual sterile fashion. A time-out procedure was performed to identify the patient, the procedure and any other precautions. She did not receive any immediate preoperative antibiotics as her next antibiotic dose since she is an inpatient in the hospital is not due yet. She did receive 10 mg of Decadron preoperatively. At this point, once a time-out was performed, and she was prepped and draped, a moist throat pack was inserted in the patient's oropharynx, followed by administration of six carpules of 2% lidocaine with 1:100,000 epinephrine as local blocks and infiltrations around the upper left and lower left quadrants, as well as small amount of infiltration in the skin incision on the left neck about 2 cm below the inferior border of the mandible. At this point, a hockey-stick extension in lower left distal area was made extending into the distal number 17, 18, 19, 20, 21, 22, 23, 24, and 25. The flaps were fully reflected and dissection all the way down to the inferior border of the mandible in the lower left quadrant was performed. At this point, a small amount of buccal bone, as a small trough was made in sites number 17, 18, 20, 21, and 22. At this point, these teeth were luxated and delivered with forceps without any incident. A periosteal elevator was then used to reflect a full-thickness mucoperiosteal flap on the lingual side of site 17, 18, 19, 21, 22. Dissection was carried out subperiosteally all the way down to the inferior border of the mandible on the lingual side, and at this point, cultures were taken as we encountered purulence, necrotic tissue. Cultures for aerobes, anaerobes and sensitivities were sent out to the microbiology lab. The abundant amount of necrotic and purulent material was evacuated into the suction. Copious irrigation and debridement was performed. At this point, attention was then given to the left neck where a 15 mm incision was made through skin and subcutaneous tissue, followed by blunt dissection through platysma muscle and into the submandibular and sublingual space on the left side. Blunt dissection with the finger at this point was performed with an abundant amount of necrotic tissue that was evacuated. Copious irrigation into the incision was made, and a [id number] quarter-inch [place] was inserted into the neck incision and into the submandibular and sublingual space and [id number] into the oral cavity. This drain was then secured to the neck skin with #3-0 silk sutures. At this point, all the extraction sockets were curetted and irrigated, and the flap was semi-closed with #3-0 chromic sutures. At this point, attention was given to upper teeth where a full-thickness flap was made in sites number 11, 13, 15, and 16. A small amount of bone was removed from sites 11, 13, 15 and 16, and then the teeth were luxated and delivered with forceps, and all the sockets were curetted and irrigated. No sinus exposure was noted. Flaps were closed #3-0 chromics. At this point, the oral cavity was irrigated and suctioned, the throat pack was removed. A neck dressing was placed, and the patient was then awakened from general anesthesia and taken back to the post-anesthesia care unit (PACU) without any incident. Estimated blood loss: 20 mL Complications; There were no complications mentioned at the time of surgery.
[2020-05-10 22:00] VITALS: BP 109/66
[2020-05-11] MEDS: NS 1,000 ML IV SCH (00:44)
[2020-05-11] MEDS: AMPICILLIN SOD/SULBACTAM SOD 3 GM in D5W MINI-BAG PLUS 100 ML IV SCH ×2 (00:44→05:45)
[2020-05-11] MEDS: KETOROLAC 30 MG/ML 1ML VIAL IV PRN ×2 (00:45→06:48)
[2020-05-11 02:00] VITALS: BP 111/72
[2020-05-11 06:00] VITALS: BP 112/64
[2020-05-11 06:08] LABS: BASO % 0.3 % (0.0-1.0); EOS # 0.1 10^3/uL (0.0-0.5); EOS % 2.4 % (0.0-3.0); HEMATOCRIT 36.2 % (36.0-47.0); HEMOGLOBIN 12.3 g/dl (12.0-15.5); LYMPH # 2.6 10^3/uL (1.5-5.0); LYMPH % 43.4 % (24.0-44.0); MEAN CORPUSCULAR HEMOGLOBIN 29.4 pg (27.0-33.0); MEAN CORPUSCULAR VOLUME 86.6 fl (80.0-96.0); MONO # 0.4 10^3/uL (0.0-0.8); MONO % 7.4 % (0.0-5.0); NEUTROPHILS # 2.7 10^3/uL (1.5-8.5); NEUTROPHILS % 46.2 % (36.0-66.0); PLATELET COUNT, AUTOMATED 241 10^3/uL (150-450); RED BLOOD COUNT 4.18 10^6/uL (4.00-5.40); WHITE BLOOD COUNT 5.9 10^3/uL (4.0-10.0)
[2020-05-11 06:40] LABS: BLOOD UREA NITROGEN 8 MG/DL (7-18); CARBON DIOXIDE LEVEL 25 MEQ/L (21-32); CHLORIDE LEVEL 110 MEQ/L (98-107); GLOMERULAR FILTRATION RATE > 60.0 (>60); GLUCOSE, FASTING 76 MG/DL (70-100); POTASSIUM SERUM 3.5 MEQ/L (3.5-5.1); SODIUM LEVEL 141 MEQ/L (136-145)
[2020-05-11] MEDS ORDERED: AUGM875T28 PO (08:52)
[2020-05-11] MEDS ORDERED: NORC1TAB7 PO (09:04)
[2020-05-11] MEDS ORDERED: PERI0.126 SSP (09:04)
[2020-05-11] MEDS ORDERED: AUGM500T34 PO (09:04)
[2020-05-11 10:00] VITALS: BP 112/62
[2020-05-11] MEDS ORDERED: OXYC1TAB23 PO (11:07)
--- NOTE | 2020-05-11 16:31 | DS.PDOC ---
Discharge Summary General Date of Admission May 09, 2020 at 02:03 Date of Discharge 05/11/20 Discharge Summary PROCEDURES PERFORMED DURING STAY: Incision and drainage of the sublingual and submandibular space abscess, as well as extraction of teeth number 11, 13, 15, 16, 17, 18, 20, 21, 22, 23, 24, and 25. DISCHARGE DIAGNOSES: Left sublingual and submandibular space abscess Terminal dentition including symptomatic and carious teeth number 11, 13, 15, 16, 17, 18, 20, 21, 22, 23, 24, and 25. SECONDARY DIAGNOSIS: Asthma, Anxiety and depression COMPLICATIONS/CHIEF COMPLAINT: Abscess Of Oral Tissue. HOSPITAL COURSE: 29-year-old female with past medical history of anxiety, dep ression and asthma, presents with an oral abscess. 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 She recently had an infection 2 weeks ago, treated with IV antibiotics and required some form of surgical intervention as well. She reports her current infection started a 2 days ago, had pain with swallowing and fevers at home. CT neck in the ER shows a submandibular abscess in the left side, oral surgeon was consulted and patient underwent the above procedure on 05/09/20. Left Odontogenic abscess adjacent to the mandible. CT neck : Large odontogenic abscess adjacent to the medial left [place] mandible. Associated soft tissue swelling in the floor of the mouth and left facial soft tissues. Unasyn --augmentin Had drainage of abscess with drain placement , removal of 11 teeth diet soft Anxiety/depression. Managed without medication, outpatient follow-up. Asthma. Doesn't require medication, currently stable, outpatient follow-up. DISCHARGE MEDICATIONS: Please see below. ALLERGIES: Please see below. PHYSICAL EXAMINATION ON DISCHARGE: VITAL SIGNS: Please see below. GENERAL: No distress HEENT: Normocephalic, atraumatic, Has a drain in the left submandibular area. NECK: Supple CARDIOVASCULAR EXAMINATION: S1, S2, no murmurs RESPIRATORY EXAMINATION: Clear to auscultation, no wheezing ABDOMINAL EXAMINATION: Soft, nontender, nondistended, positive bowel sounds EXTREMITIES: Range of motion intact SKIN: No rash NEUROLOGICAL EXAMINATION: Alert and oriented 3, no focal deficits PSYCHIATRIC EXAMINATION: Calm and cooperative LABORATORY DATA: Please see below. ACTIVITY: [As tolerated]. DIET: Soft DISPOSITION: 01 Home, Self-Care. DISCHARGE INSTRUCTIONS: Follow up with Dr Da Silva on 05/16/20 DISCHARGE CONDITION: [Stable]. TIME SPENT ON DISCHARGE: 35 minutes. Vital Signs/I&Os Vital Signs Date Time Temp Pulse Resp B/P (MAP) Pulse Ox O2 Delivery O2 Flow Rate FiO2 05/11/20 10:00 98.6 70 18 112/62 (79) 99 Room Air I&O- Last 24 Hours up to 6 AM 05/11/20 07:00 Intake Total 3040 ml Output Total 600 ml Balance 2440 ml Laboratory Data Labs 24H Laboratory Tests 2 05/11/20 05:25: Immature Granulocyte % (Auto) 0.3, Neutrophils (%) (Auto) 46.2, Lymphocytes (%) (Auto) 43.4, Monocytes (%) (Auto) 7.4H, Eosinophils (%) (Auto) 2.4, Basophils (%) (Auto) 0.3, Neutrophils # (Auto) 2.7, Lymphocytes # (Auto) 2.6, Monocytes # (Auto) 0.4, Eosinophils # (Auto) 0.1, Basophils # (Auto) 0.0, Nucleated Red Blood Cells % (auto) 0.0, Anion Gap 6L, Glomerular Filtration Rate > 60.0, Calcium Level 8.0L CBC/BMP Laboratory Tests 05/11/20 05:25 Microbiology Microbiology 05/09/20 Gram Stain - Final, Resulted 05/09/20 Wound Culture, Resulted Pending 05/09/20 Anaerobic Culture, Resulted Pending 05/09/20 Respiratory Virus Panel (PCR) ([facility]) - Final, Complete 05/08/20 Blood Culture - Preliminary, Resulted No Growth after 48 hours. All Specime... 05/08/20 Blood Culture - Preliminary, Resulted No Growth after 48 hours. All Specime... 05/08/20 Group A Streptococcus Screen ([facility]) - Final, Complete Discharge Medications Scheduled Amoxicillin/Potassium Clav (Augmentin 500-125 Tablet) 1 Each Tablet, 500 MG PO TID Chlorhexidine Gluconate (Peridex) 473 Ml Mouthwash, 10 ML SSP QID start on 05/12 Scheduled PRN Acetaminophen (Acetaminophen) 500 Mg Tablet, 500 MG PO Q6H PRN for PAIN, (Reported) Albuterol Sulfate (Albuterol Sulfate Hfa) 8.5 Gm Hfa.aer.ad, 2 PUFF INH Q4H PRN for SOB/WHEEZING, (Reported) Oxycodone HCl/Acetaminophen (Oxycodone-Acetaminophen 5-325) 1 Each Tablet, 1 TAB PO QIDP PRN for pain Allergies Coded Allergies: naproxen (Verified Allergy, Intermediate, hives, 05/08/20) tramadol (Verified Allergy, Intermediate, hives/vomiting, 05/08/20) lithium (Verified Adverse Reaction, Intermediate, vomiting/hair loss, 04/23 05/12) hydrocodone (Verified Adverse Reaction, Mild, vomiting, 05/08/20) ibuprofen (Verified Adverse Reaction, Mild, vomiting, 05/08/20) NAYELY MARTINEZ MD May 11, 2020 16:31
== END 2020-05-11 12:10 | disposition home or self-care (01) | DRG 114 ==
LOC: M ED 20:58 → M ED INP 05-09 02:03 → ENRESERV 05-09 02:33 → M MSPAV 05-09 03:45
PROVIDERS: ADMIT Internal Medicine; ATTEND Internal Medicine Nephrology
PROC: 0CTW0Z1 Resection of Upper Tooth, Multiple, Open Approach (ICD-10-PCS; principal; 2020-05-09 15:30)
PROC: 0CTX0Z1 Resection of Lower Tooth, Multiple, Open Approach (ICD-10-PCS; 2020-05-09 15:30)
DX: K12.2 Cellulitis and abscess of mouth (principal); K04.7 Periapical abscess without sinus; F17.200 Nicotine dependence, unspecified, uncomplicated; J45.909 Unspecified asthma, uncomplicated; Z88.6 Allergy status to analgesic agent; Z88.2 Allergy status to sulfonamides

== ENCOUNTER → 2020-07-04 | Outpatient (REF) | payer OTHER ==
[~2020-07-04] MED LIST changes: +ACET-683 PO; +ALBU8.5H INH; +AUGM500T34 PO; +AUGM875T28 PO; +NORC1TAB7 PO; +OXYC1TAB23 PO; +PERI0.126 SSP
[2020-08-06 11:41] LABS: BASO # 0.1 10^3/uL (0.0-0.2); BASO % 0.5 % (0.0-1.0); EOS # 0.1 10^3/uL (0.0-0.5); HEMATOCRIT 47.4 % (36.0-47.0); HEMOGLOBIN 15.5 g/dl (12.0-15.5); LYMPH # 2.5 10^3/uL (1.5-5.0); LYMPH % 25.2 % (24.0-44.0); MEAN CORPUSCULAR HEMOGLOBIN 28.4 pg (27.0-33.0); MEAN CORPUSCULAR HGB CONC 32.7 g/dl (32.0-36.5); MONO # 0.5 10^3/uL (0.0-0.8); MONO % 4.6 % (0.0-5.0); NEUTROPHILS # 6.8 10^3/uL (1.5-8.5); NEUTROPHILS % 68.4 % (36.0-66.0); PLATELET COUNT, AUTOMATED 312 10^3/uL (150-450); RED BLOOD COUNT 5.45 10^6/uL (4.00-5.40); WHITE BLOOD COUNT 9.9 10^3/uL (4.0-10.0)
[2020-08-19 14:20] LABS: ALBUMIN 4.5 GM/DL (3.2-5.2); ALT/SGPT 20 U/L (12-78); BILIRUBIN,TOTAL 0.3 MG/DL (0.2-1.0); BLOOD UREA NITROGEN 7 MG/DL (7-18); CALCIUM LEVEL 9.3 MG/DL (8.5-10.1); CARBON DIOXIDE LEVEL 26 MEQ/L (21-32); CHLORIDE LEVEL 107 MEQ/L (98-107); CHOLESTEROL LEVEL 172 MG/DL (<200); CHOLESTEROL RISK RATIO 2.606 (<5); CREATININE FOR GFR 0.75 MG/DL (0.55-1.30); FREE T4 1.05 NG/DL (0.76-1.46); GLOMERULAR FILTRATION RATE > 60.0 (>60); GLUCOSE, FASTING 75 MG/DL (70-100); HCG, SERUM QUANTITATIVE < 1.0 MIU/ML; HDL CHOLESTEROL 66 MG/DL (>40); LDL CHOLESTEROL 95 MG/DL (<100); NON-HDL-C 106 MG/DL; POTASSIUM SERUM 4.6 MEQ/L (3.5-5.1); SODIUM LEVEL 140 MEQ/L (136-145); TOTAL 25(OH) VITAMIN D 32.4 NG/ML (30.0-100.0); TRIGLYCERIDES LEVEL 56 MG/DL (<150)
== END ==
LOC: M LAB REF 12:05
PROVIDERS: ATTEND Nurse Practitioner Family
DX: Z00.01 Encounter for general adult medical examination with abnormal findings (principal); N92.5 Other specified irregular menstruation; Z13.9 Encounter for screening, unspecified; F17.200 Nicotine dependence, unspecified, uncomplicated; E78.5 Hyperlipidemia, unspecified; E55.9 Vitamin D deficiency, unspecified; M54.5 Low back pain

== ENCOUNTER → 2021-01-09 | Outpatient (REF) | payer OTHER ==
[~2021-01-09] MED LIST changes: -CLIN150C14 PO; +CLIN150C15 PO; -VITA-145 PO; +VITAD1000T PO
[2021-01-09 16:26] LABS: BASO % 0.6 % (0.0-1.0); EOS # 0.2 10^3/uL (0.0-0.5); EOS % 3.2 % (0.0-3.0); HEMATOCRIT 43.3 % (36.0-47.0); HEMOGLOBIN 14.3 g/dl (12.0-15.5); LYMPH # 2.1 10^3/uL (1.5-5.0); LYMPH % 30.2 % (24.0-44.0); MEAN CORPUSCULAR HEMOGLOBIN 28.4 pg (27.0-33.0); MEAN CORPUSCULAR VOLUME 85.9 fl (80.0-96.0); MONO # 0.4 10^3/uL (0.0-0.8); MONO % 5.2 % (2.0-8.0); NEUTROPHILS # 4.2 10^3/uL (1.5-8.5); NEUTROPHILS % 60.7 % (36.0-66.0); PLATELET COUNT, AUTOMATED 269 10^3/uL (150-450); RED BLOOD COUNT 5.04 10^6/uL (4.00-5.40); WHITE BLOOD COUNT 6.9 10^3/uL (4.0-10.0)
[2021-01-09 16:37] LABS: ALT/SGPT 20 U/L (12-78); BILIRUBIN,TOTAL 0.5 MG/DL (0.2-1.0); BLOOD UREA NITROGEN 5 MG/DL (7-18); CALCIUM LEVEL 9.6 MG/DL (8.5-10.1); CARBON DIOXIDE LEVEL 28 MEQ/L (21-32); CHLORIDE LEVEL 107 MEQ/L (98-107); GLOMERULAR FILTRATION RATE > 60.0 (>60); GLUCOSE, FASTING 88 MG/DL (70-100); POTASSIUM SERUM 3.9 MEQ/L (3.5-5.1); SODIUM LEVEL 141 MEQ/L (136-145); TRIGLYCERIDES LEVEL 80 MG/DL (<150)
[2021-01-09 16:38] LABS: ALBUMIN 4.1 GM/DL (3.2-5.2); CHOLESTEROL LEVEL 142 MG/DL (<200); CHOLESTEROL RISK RATIO 3.463 (<5); FREE T4 0.97 NG/DL (0.76-1.46); HDL CHOLESTEROL 41 MG/DL (>40); LDL CHOLESTEROL 85 MG/DL (<100); NON-HDL-C 101 MG/DL; TOTAL PROTEIN 7.2 GM/DL (6.4-8.2)
[2021-01-09 16:40] LABS: TOTAL 25(OH) VITAMIN D 13.1 NG/ML (30.0-100.0)
[2021-01-09 17:10] LABS: HEMOGLOBIN A1c 4.9 %
== END ==
LOC: M LAB REF 16:06
PROVIDERS: ATTEND Nurse Practitioner Family
DX: F41.1 Generalized anxiety disorder (principal); E78.5 Hyperlipidemia, unspecified; M54.5 Low back pain